=== PATIENT | male | born 1965 | race Caucasian/White ===

== ENCOUNTER 2016-12-31 04:58 | Emergency (ER) | payer OTHER ==
--- NOTE | 2016-12-31 06:11 | ED ORDER SUMMARY ---
..... Patient: AURELIO ANGEL OrderSheet [facility] VisitID: [id number] [place] [address] 51y, M Registration Date/Time: 12/31/2016 ORDER SHEET Weight: 88.4 kg (stated) Allergies: No Known Drug Allergy GENERAL ORDERS: MEDICATION ORDERS: Albuterol Neb w Atrovent 5 mg (NOW) (05:11 12/31/2016 DDavis R.N. per protocol) (Ack 5:12 DDavis R.N.) (5:43 ASingh) Prednisone PO 60 mg (NOW) (05:20 12/31/2016 Leona Arellano) (5:23 DDavis R.N.) Albuterol Neb Tx 5 mg (once now) (05:29 12/31/2016 Leona Arellano) (Ack 5:35 DDavis R.N.) (5:43 ASingh) IV FLUIDS: ORDER SHEET NOTES: [Electronically signed by Ashish Contreras R.N. (06:12/31/2016)] [Electronically signed by Nick Stevenson Dr. (03:24 01/05/2017)] [Electronically locked/signed by Ashish Contreras R.N. (06:12/31/2016)]
--- NOTE | 2016-12-31 06:11 | ED NURSING NOTES ---
Clinical Report - Nurses [facility] [address] [place] [address] 12/31/2016 4:59 Patient: AURELIO ANGEL TRIAGE Triage time 05:02. Acuity: LEVEL 4. Chief Complaint: SHORTNESS OF BREATH. No acute distress. --05:05 Ashish Contreras R.N. 05:02 12/31/16. BP: 122/68. HR: 72. RR: 24. O2 saturation: 96% on room air. Temp: 97.7 F (oral). Pain level now: 03/05. --05:05 Ashish Contreras R.N. Weight: 88.4 kg stated. Height/Length: 108 inches Per Patient. BMI: 11.7. --05:01 Ashish Contreras R.N. Medications None. --05:03 Ashish Contreras R.N. Allergies No Known Drug Allergy. --05:03 Ashish Contreras R.N. History Arrived by private vehicle. Historian: patient. Accompanied by family. Onset. (1 week ago). He has had fever, chills and chest pain. He has had a cough productive of clear sputum. SOCIAL HX: Heavy tobacco smoker- less than 1 pack per day. History of occasional drug use: marijuana. No alcohol use. --05:05 Ashish Contreras R.N. PROBLEMS: Asthma. Bronchitis. --05:03 Ashish Contreras R.N. ADDITIONAL SURGERIES: no known surgeries. Interventions ID band on patient. To treatment room. --05:05 Ashish Contreras R.N. PHYSICAL ASSESSMENT Ambulatory to room. GENERAL / NEURO / PSYCH: Alert. Oriented X 4. Appears anxious. HEENT: Mucous membranes are pink. RESPIRATORY: Mild respiratory distress. Respirations not labored. The patient can speak in full sentences. Expiratory and inspiratory bilateral wheezes diffusely. CVS: Capillary refill less than 2 seconds. GI / : Abdomen soft and nontender. SKIN: Skin is warm and dry. --05:07 Ben, Ashish, R.N. CVS: ( no abnormal heart sound noted on auscultation). --05:14 Ashish Contreras R.N. GENERAL / NEURO / PSYCH: Alert. Oriented X 4. RESPIRATORY: No respiratory distress. No respiratory distress. CVS: Capillary refill less than 2 seconds. --06:24 Ashish Contreras R.N. GENERAL / NEURO / PSYCH: Does not appear in pain or distress or anxious. --06:24 Ashish Contreras R.N. NURSING PROGRESS NOTES Head of bed elevated. Reassurance given. Two patient identifiers checked. Call light placed in reach. Side rails up x 1. Bed placed in lowest position. Brakes of bed on. Patient ready for evaluation- chart flagged. Patient waiting for evaluation. --05:07 Ashish Contreras R.N. ( I called RT and requested breathing treatment.). --05:12 Ashish Contreras R.N. 05:23 12/31/2016 Prednisone PO Tablets 60 mg given. Allergies verified and confirmed 5 rights. --05:23 Ashish Contreras R.N. ( RT currently with patient). --05:23 Ashish Contreras R.N. ( RT called for second breathing treatment). --05:35 Ashish Contreras R.N. DISPOSITION / DISCHARGE Departure time: 06:23. Condition at departure: improved and stable. No learning barriers present. Discharge instructions provided and reviewed with the patient and family. Reviewed warnings. Reviewed medication(s) side effects, precautions, dosing and course information. Prescription(s) given to the patient. Treatments reviewed. Reviewed referrals for followup. Patient and communications specialist verbalized understanding. Written instructions provided in Slovenian. The patient was discharged home and accompanied by communications specialist. He left the Emergency Department ambulatory and via private vehicle. Cath Lab Radiology Technician driving. ( pt states that his breathing is "better."). --06:23 Ashish Contreras R.N. 06:22 12/31/16. BP: 112/67. HR: 74. RR: 20. O2 saturation: 95% on room air. --06:23 Ashish Contreras R.N. Locked/Released at 12/31/2016 6:24 by Ashish Contreras R.N.
--- NOTE | 2016-12-31 06:11 | ED CLINICAL REPORT ---
Clinical Report - Physicians/Mid Levels [facility] [address] [place] [place] [address] 12/31/2016 4:59 Patient: AURELIO ANGEL Time Seen: 0507. Arrived- By private vehicle. Historian- patient. HISTORY OF PRESENT ILLNESS Chief Complaint: WHEEZING and HISTORY OF ASTHMA. This started today and is still present. It was abrupt in onset and has been constant but is not gone now. The dyspnea is described as moderate. He has had dyspnea at rest. The patient has had a cough. No orthopnea or chest pain or discomfort. Asthma triggers: unknown. Takes asthma medications, but ran out. has not needed it for the past few years. Similar symptoms previously: Recent medical care: Not recently seen/assessed. REVIEW OF SYSTEMS No skin rash. All systems otherwise negative, except as recorded above. PAST HISTORY See nurses notes. Additional Surgeries: no known surgeries. Medications: None. Allergies: No Known Drug Allergy. SOCIAL HISTORY Never smoker. No alcohol use or drug use. No recent travel. Is a local resident. 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 ADDITIONAL NOTES The nursing notes have been reviewed. PHYSICAL EXAM Vital Signs: 12/31/2016 05:02 BP: 122/68. HR: 72. RR: 24. O2 saturation: 96%. Temp: 97.7 F. Pain level now: 6/10. Blood pressure normal. Oxygen saturation normal. Appearance: Alert. No acute distress. Eyes: Pupils equal, round and reactive to light. Eyes normal inspection. ENT: Ears normal. Nose normal. Pharynx normal. Uvula midline. Neck: Normal inspection. Neck supple. CVS: Normal heart rate and rhythm. Heart sounds normal. Pulses normal. Respiratory: Mild respiratory distress with accessory muscle use. Expiratory moderate bilateral wheezes diffusely. No stridor, rales or rhonchi. Abdomen: Soft and nontender. No organomegaly. Back: Normal inspection. Skin: Skin warm and dry. Normal skin color. No rash. Normal skin turgor. Extremities: Extremities exhibit normal ROM. No lower extremity edema. PROGRESS AND PROCEDURES Course of Care: the patient is a 51-year-old male with past medical history significant for asthma presenting for evaluation of wheezing. Patient in a mild amount of respiratory distress. Respiratory therapy has been called. Respiratory therapy at bedside immediately. Breathing treatment started. Steroids also provided. Patient does not have a fever at this time. Do not feel symptoms are due to pneumonia. Patient is agreeable to treatment plan. patient will be monitored here in the emergency department. patient was provided with breathing treatment and reevaluated. Patient responded well to the breathing treatment. Patient still wheezing however. Another breathing treatment will be ordered. The patient is agreeable to the treatment plan. Because the patient is responding appropriately to the breathing treatments, do not feel patient requires further workup here in the emergency department. We'll monitor closely at this time and in to sleep patient will be discharged from the emergency Department follow-up with his primary care Dr. Breathing treatments while here in the emergency department the been successful in reversing the patient'sasthma symptoms. Patient is resting in bed and in no acute distress. Patient continues to be nontoxic. Lungs are clear to auscultation bilaterally. Because the patient's significant improvement while here in the emergency department, did not feel chest x-ray or further emergency department workup is warranted at this time. Patient is a good outpatient candidate. Refills of patient's asthma medication provided as well assteroid burst. Patient is a good outpatient candidate. Patient is a stable and reliable. I discussed with patient his workup here in the emergency department including home care, follow-up, diagnosis, and return precautions. All questions have been answered. The patient expressed understanding of these instructions and was agreeable to them. CLINICAL IMPRESSION 12/31/2016 05:02 BP: 122/68. HR: 72. RR: 24. O2 saturation: 96%. Temp: 97.7 F. Pain level now: 6/10. Blood pressure normal. Oxygen saturation normal. Mild persistent asthma with an acute exacerbation. No status asthmaticus. INSTRUCTIONS Off work today. Warnings: GENERAL WARNINGS: Return or contact your physician immediately if your condition worsens or changes unexpectedly, if not improving as expected, or if other problems arise. Specifically return if pain, vomiting, bleeding, breathing difficulty or fever. Your Current Medications: CONTINUE TAKING THE FOLLOWING MEDICATIONS: None*. Prescription Medications: Albuterol HFA oral inhaler: inhale 1-2 puffs every 4 hours as needed for wheezing, difficulty breathing or shortness of breath. Dispense one (1) unit. No refill. Prednisone every day for 5 days. Dispense sufficient quantity. No refills. (60 mg PO) Follow-up: Return to the emergency department as needed. Follow up with your doctor in three days. Reason for referral: recheck today's concerns. Summary of care provided to patient via paper. Screening today revealed the patient's blood pressure to be in the hypertensive range. The patient should follow up with a primary care provider for blood pressure management. Understanding of the discharge instructions verbalized by patient. (Electronically signed by Nick Stevenson Dr. 01/05/2017 3:24)
--- NOTE | 2016-12-31 06:11 | ED ORDER SUMMARY ---
..... Patient: AURELIO ANGEL OrderSheet [facility] VisitID: [id number] [place] [address] 51y, M Registration Date/Time: 12/31/2016 ORDER SHEET Weight: 88.4 kg (stated) Allergies: No Known Drug Allergy GENERAL ORDERS: MEDICATION ORDERS: Albuterol Neb w Atrovent 5 mg (NOW) (05:11 12/31/2016 DDavis R.N. per protocol) (Ack 5:12 DDavis R.N.) (5:43 ASingh) Prednisone PO 60 mg (NOW) (05:20 12/31/2016 Leona Arellano) (5:23 DDavis R.N.) Albuterol Neb Tx 5 mg (once now) (05:29 12/31/2016 Leona Arellano) (Ack 5:35 DDavis R.N.) (5:43 ASingh) IV FLUIDS: ORDER SHEET NOTES: [Electronically signed by Ashish Contreras R.N. (06:12/31/2016)] [Electronically signed by Nick Stevenson Dr. (03:24 01/05/2017)] [Electronically locked/signed by Ashish Contreras R.N. (06:12/31/2016)]
--- NOTE | 2016-12-31 06:11 | ED NURSING NOTES ---
Clinical Report - Nurses [facility] [address] [place] [address] 12/31/2016 4:59 Patient: AURELIO ANGEL TRIAGE Triage time 05:02. Acuity: LEVEL 4. Chief Complaint: SHORTNESS OF BREATH. No acute distress. --05:05 Ashish Contreras R.N. 05:02 12/31/16. BP: 122/68. HR: 72. RR: 24. O2 saturation: 96% on room air. Temp: 97.7 F (oral). Pain level now: 03/05. --05:05 Ashish Contreras R.N. Weight: 88.4 kg stated. Height/Length: 108 inches Per Patient. BMI: 11.7. --05:01 Ashish Contreras R.N. Medications None. --05:03 Ashish Contreras R.N. Allergies No Known Drug Allergy. --05:03 Ashish Contreras R.N. History Arrived by private vehicle. Historian: patient. Accompanied by family. Onset. (1 week ago). He has had fever, chills and chest pain. He has had a cough productive of clear sputum. SOCIAL HX: Heavy tobacco smoker- less than 1 pack per day. History of occasional drug use: marijuana. No alcohol use. --05:05 Ashish Contreras R.N. PROBLEMS: Asthma. Bronchitis. --05:03 Ashish Contreras R.N. ADDITIONAL SURGERIES: no known surgeries. Interventions ID band on patient. To treatment room. --05:05 Ashish Contreras R.N. PHYSICAL ASSESSMENT Ambulatory to room. GENERAL / NEURO / PSYCH: Alert. Oriented X 4. Appears anxious. HEENT: Mucous membranes are pink. RESPIRATORY: Mild respiratory distress. Respirations not labored. The patient can speak in full sentences. Expiratory and inspiratory bilateral wheezes diffusely. CVS: Capillary refill less than 2 seconds. GI / : Abdomen soft and nontender. SKIN: Skin is warm and dry. --05:07 Ben, Ashish, R.N. CVS: ( no abnormal heart sound noted on auscultation). --05:14 Ashish Contreras R.N. GENERAL / NEURO / PSYCH: Alert. Oriented X 4. RESPIRATORY: No respiratory distress. No respiratory distress. CVS: Capillary refill less than 2 seconds. --06:24 Ashish Contreras R.N. GENERAL / NEURO / PSYCH: Does not appear in pain or distress or anxious. --06:24 Ashish Contreras R.N. NURSING PROGRESS NOTES Head of bed elevated. Reassurance given. Two patient identifiers checked. Call light placed in reach. Side rails up x 1. Bed placed in lowest position. Brakes of bed on. Patient ready for evaluation- chart flagged. Patient waiting for evaluation. --05:07 Ashish Contreras R.N. ( I called RT and requested breathing treatment.). --05:12 Ashish Contreras R.N. 05:23 12/31/2016 Prednisone PO Tablets 60 mg given. Allergies verified and confirmed 5 rights. --05:23 Ashish Contreras R.N. ( RT currently with patient). --05:23 Ashish Contreras R.N. ( RT called for second breathing treatment). --05:35 Ashish Cnotreras R.N. DISPOSITION / DISCHARGE Departure time: 06:23. Condition at departure: improved and stable. No learning barriers present. Discharge instructions provided and reviewed with the patient and family. Reviewed warnings. Reviewed medication(s) side effects, precautions, dosing and course information. Prescription(s) given to the patient. Treatments reviewed. Reviewed referrals for followup. Patient and green end man verbalized understanding. Written instructions provided in Romansh. The patient was discharged home and accompanied by green end man. He left the Emergency Department ambulatory and via private vehicle. Screw Machine Tender driving. ( pt states that his breathing is "better."). --06:23 Ashish Contreras R.N. 06:22 12/31/16. BP: 112/67. HR: 74. RR: 20. O2 saturation: 95% on room air. --06:23 Ashish Contreras R.N. Locked/Released at 12/31/2016 6:24 by Ashish Contreras R.N.
--- NOTE | 2017-01-05 03:24 | ED MAR SUMMARY ---
..... Medication Administration Record [facility] [address] [place] [address] Patient: AURELIO ANGEL Visit ID: [id number] 51y, M Weight: 88.4 kg Height/Length: 108 in BMI: 11.7 ALLERGIES: No Known Drug Allergy Given 05:23 12/31/2016 Ashish Contreras R.N. Medication Administered: PREDNISONE [PO], Dose: 60 mg Tablets PO. Medication Ordered: Prednisone PO 60 mg (NOW). Given 05:28 12/31/2016 Mj Yin, Medication Administered: ALBUTEROL NEB W ATROVENT, Dose: 2.5 mg Nebulizer Neb TX. Medication Ordered: Albuterol Neb w Atrovent 5 mg (NOW). Given 05:43 12/31/2016 Mj Yin, Medication Administered: ALBUTEROL [NEB TX], Dose: 5 mg Nebulizer Neb TX. Medication Ordered: Albuterol Neb Tx 5 mg (once now).
--- NOTE | 2017-01-05 03:24 | ED MED RECONCILIATION SUMMARY ---
Patient: AURELIO ANGEL Medication Reconciliation Report [facility] VisitID: [id number] [place] [address] 51y, M Registration Date/Time: 12/31/2016 Weight: 88.4 kg Height/Length: 108 in. BMI: 11.7 ALLERGIES: No Known Drug Allergy The patient's Home Medications are listed below: NONE. The source(s) of the original Home Medication information: Not obtained. The following Medications were given to the patient in the Emergency Department: Prednisone [PO] PO 60 mg, administered: 12/31/2016 5:23:00 AM ALBUTEROL NEB W ATROVENT Neb TX 2.5 mg, administered: 12/31/2016 5:28:00 AM Albuterol [Neb Tx] Neb TX 5 mg, administered: 12/31/2016 5:43:00 AM The following Medications were prescribed to the patient: Albuterol HFA oral inhaler: inhale 1-2 puffs every 4 hours as needed for wheezing, difficulty breathing or shortness of breath. Dispense one (1) unit. No refill. -- Nick Stevenson Dr. Prednisone every day for 5 days. Dispense sufficient quantity. No refills.(60 mg PO) -- Nick Stevenson Dr.
--- NOTE | 2017-01-05 03:24 | ED MED RECONCILIATION SUMMARY ---
Patient: AURELIO ANGEL Medication Reconciliation Report [facility] VisitID: [id number] [place] [address] 51y, M Registration Date/Time: 12/31/2016 Weight: 88.4 kg Height/Length: 108 in. BMI: 11.7 ALLERGIES: No Known Drug Allergy The patient's Home Medications are listed below: NONE. The source(s) of the original Home Medication information: Not obtained. The following Medications were given to the patient in the Emergency Department: Prednisone [PO] PO 60 mg, administered: 12/31/2016 5:23:00 AM ALBUTEROL NEB W ATROVENT Neb TX 2.5 mg, administered: 12/31/2016 5:28:00 AM Albuterol [Neb Tx] Neb TX 5 mg, administered: 12/31/2016 5:43:00 AM The following Medications were prescribed to the patient: Albuterol HFA oral inhaler: inhale 1-2 puffs every 4 hours as needed for wheezing, difficulty breathing or shortness of breath. Dispense one (1) unit. No refill. -- Nick Stevenson Dr. Prednisone every day for 5 days. Dispense sufficient quantity. No refills.(60 mg PO) -- Nick Stevenson Dr.
--- NOTE | 2017-01-05 03:24 | ED MAR SUMMARY ---
..... Medication Administration Record [facility] [address] [place] [address] Patient: AURELIO ANGEL Visit ID: [id number] 51y, M Weight: 88.4 kg Height/Length: 108 in BMI: 11.7 ALLERGIES: No Known Drug Allergy Given 05:23 12/31/2016 Ashish Contreras R.N. Medication Administered: PREDNISONE [PO], Dose: 60 mg Tablets PO. Medication Ordered: Prednisone PO 60 mg (NOW). Given 05:28 12/31/2016 Mj Yin, Medication Administered: ALBUTEROL NEB W ATROVENT, Dose: 2.5 mg Nebulizer Neb TX. Medication Ordered: Albuterol Neb w Atrovent 5 mg (NOW). Given 05:43 12/31/2016 Mj Yin, Medication Administered: ALBUTEROL [NEB TX], Dose: 5 mg Nebulizer Neb TX. Medication Ordered: Albuterol Neb Tx 5 mg (once now).
--- NOTE | 2017-01-05 03:24 | ED DISCHARGE INSTRUCTIONS ---
Patient: AURELIO ANGEL [facility] VisitID: [id number] [place] [address] 51y, M Registration Date/Time: 12/31/2016 12/31/2016 05:02 BP: 122/68. HR: 72. RR: 24. O2 saturation: 96%. Temp: 97.7 F. Pain level now: 6/10. Blood pressure normal. Oxygen saturation normal. Mild persistent asthma with an acute exacerbation. No status asthmaticus. INSTRUCTIONS Off work today. Warnings: GENERAL WARNINGS: Return or contact your physician immediately if your condition worsens or changes unexpectedly, if not improving as expected, or if other problems arise. Specifically return if pain, vomiting, bleeding, breathing difficulty or fever. Your Current Medications: CONTINUE TAKING THE FOLLOWING MEDICATIONS: None*. Prescription Medications: Albuterol HFA oral inhaler: inhale 1-2 puffs every 4 hours as needed for wheezing, difficulty breathing or shortness of breath. Dispense one (1) unit. No refill. Prednisone every day for 5 days. Dispense sufficient quantity. No refills. (60 mg PO) Follow-up: Return to the emergency department as needed. Follow up with your doctor in three days. Reason for referral: recheck today's concerns. Summary of care provided to patient via paper. Screening today revealed the patient's blood pressure to be in the hypertensive range. The patient should follow up with a primary care provider for blood pressure management. Understanding of the discharge instructions verbalized by patient. ADDITIONAL INFORMATION Asthma [Adult] Asthma is a disease where the small air passages within the lung go into spasm and restrict the flow of air. Inflammation and swelling of the airways cause further restriction. During an acute asthma attack, these factors cause difficulty breathing, wheezing, cough and chest tightness. An asthma attack can be triggered by many things. Common triggers include the common cold, bronchitis, pneumonia, irritants such as smoke or pullutants in the air, emotional upset and heavy exercise. Inmany adults with asthma, allergies todust, mold, pollen and animal dander can cause an asthma attack. Skipping doses of daily asthma medicine can also bring on an asthma attack. Asthma can be controlled with proper medicines and decreased exposure to known allergens. Home Care: Take prescribed medicine exactly at the times advised. If you have a hand-held inhaler or aerosol breathing medicine, do not use it more than once every four hours, unless told to do so. (If you need this medicine more than every four hours, you may need to return to the Emergency Room.) If prescribed an antibiotic or prednisone, take all of the medicine even if you are feeling better after a few days. Do not smoke. Avoid being exposed to the smoke of others. Some persons with asthma have worsening of their symptoms when they take aspirin and non-steroidal medicines like ibuprofen (Motrin, Advil) and naproxen (Aleve, Naprosyn). Talk to your doctor if you think this may apply to you. Acetaminophen (Tylenol)should be safe to use. Follow Up with your doctor, or as advised by our staff. Always bring all of your current medicines with you for your doctor to see. If you do not already have one, talk to your doctor about developing a personalized "Asthma Action Plan." [NOTE: A pneumococcal vaccine and yearly flu shot (every fall) are recommended. Ask your doctor about this.] Get Prompt Medical Attention if any of the following occur: Increased wheezing or shortness of breath Need to use your inhalers more often than usual without relief Fever of 100.4F (38C) or higher, or as directed by your healthcare provider Coughing up lots of dark-colored or bloody sputum (mucus) Chest pain with each breath You do not start to improve within 24 hours Call 911 If Any Of The Following Occur : Trouble walking or talking because of shortness of breath If you use a peak flow meter andyou are still in the red zone (less than 50 percent) 15 minutes after using inhaler medication Lips or fingernails turning gallardo or blue Albuterol Sulfate Pressurized inhalation, suspension What is this medicine? ALBUTEROL (al BYOO ter ole) is a bronchodilator. It helps open up the airways in your lungs to make it easier to breathe. This medicine is used to treat and to prevent bronchospasm. How should I use this medicine? This medicine is for inhalation through the mouth. Follow the directions on your prescription label. Take your medicine at regular intervals. Do not use more often than directed. Make sure that you are using your inhaler correctly. Ask you doctor or health care provider if you have any questions. Talk to your faith healer regarding the use of this medicine in children. Special care may be needed. What side effects may I notice from receiving this medicine? Side effects that you should report to your doctor or health rn homecare as soon as possible: allergic reactions like skin rash, itching or hives, swelling of the face, lips, or tongue breathing problems chest pain feeling faint or lightheaded, falls high blood pressure irregular heartbeat fever muscle cramps or weakness pain, tingling, numbness in the hands or feet vomiting Side effects that usually do not require medical attention (report to your doctor or health rn homecare if they continue or are bothersome): cough difficulty sleeping headache nervousness or trembling stomach upset stuffy or runny nose throat irritation unusual taste What may interact with this medicine? anti-infectives like chloroquine and pentamidine caffeine cisapride diuretics medicines for colds medicines for depression or for emotional or psychotic conditions medicines for weight loss including some herbal products methadone some antibiotics like clarithromycin, erythromycin, levofloxacin, and linezolid some heart medicines steroid hormones like dexamethasone, cortisone, hydrocortisone theophylline thyroid hormones What if I miss a dose? If you miss a dose, use it as soon as you can. If it is almost time for your next dose, use only that dose. Do not use double or extra doses. Where should I keep my medicine? Keep out of the reach of children. Store at room temperature between 15 and 30 degrees C (59 and 86 degrees F). The contents are under pressure and may burst when exposed to heat or flame. Do not freeze. This medicine does not work as well if it is too cold. Throw away any unused medicine after the expiration date. Inhalers need to be thrown away after the labeled number of puffs have been used or by the expiration date; whichever comes first. Ventolin HFA should be thrown away 12 months after removing from foil pouch. Check the instructions that come with your medicine. What should I tell my health care provider before I take this medicine? They need to know if you have any of the following conditions: diabetes heart disease or irregular heartbeat high blood pressure pheochromocytoma seizures thyroid disease an unusual or allergic reaction to albuterol, levalbuterol, sulfites, other medicines, foods, dyes, or preservatives or trying to get breast-feeding What should I watch for while using this medicine? Tell your doctor or health rn homecare if your symptoms do not improve. Do not use extra albuterol. If your asthma or bronchitis gets worse while you are using this medicine, call your doctor right away. If your mouth gets dry try chewing sugarless gum or sucking hard candy. Drink water as directed. Prednisone Oral tablet What is this medicine? PREDNISONE (PRED ni sone) is a corticosteroid. It is commonly used to treat inflammation of the skin, joints, lungs, and other organs. Common conditions treated include asthma, allergies, and arthritis. It is also used for other conditions, such as blood disorders and diseases of the adrenal glands. How should I use this medicine? Take this medicine by mouth with a glass of water. Follow the directions on the prescription label. Take this medicine with food. If you are taking this medicine once a day, take it in the morning. Do not take more medicine than you are told to take. Do not suddenly stop taking your medicine because you may develop a severe reaction. Your doctor will tell you how much medicine to take. If your doctor wants you to stop the medicine, the dose may be slowly lowered over time to avoid any side effects. Talk to your faith healer regarding the use of this medicine in children. Special care may be needed. What side effects may I notice from receiving this medicine? Side effects that you should report to your doctor or health rn homecare as soon as possible: allergic reactions like skin rash, itching or hives, swelling of the face, lips, or tongue changes in emotions or moods changes in vision depressed mood eye pain fever or chills, cough, sore throat, pain or difficulty passing urine increased thirst swelling of ankles, feet Side effects that usually do not require medical attention (report to your doctor or health rn homecare if they continue or are bothersome): confusion, excitement, restlessness headache nausea, vomiting skin problems, acne, thin and shiny skin trouble sleeping weight gain What may interact with this medicine? Do not take this medicine with any of the following medications: metyrapone mifepristone This medicine may also interact with the following medications: aminoglutethimide amphotericin B aspirin and aspirin-like medicines barbiturates certain medicines for diabetes, like glipizide or glyburide cholestyramine cholinesterase inhibitors cyclosporine digoxin diuretics ephedrine female hormones, like estrogens and control pills isoniazid ketoconazole NSAIDS, medicines for pain and inflammation, like ibuprofen or naproxen phenytoin rifampin toxoids vaccines warfarin What if I miss a dose? If you miss a dose, take it as soon as you can. If it is almost time for your next dose, talk to your doctor or health rn homecare. You may need to miss a dose or take an extra dose. Do not take double or extra doses without advice. Where should I keep my medicine? Keep out of the reach of children. Store at room temperature between 15 and 30 degrees C (59 and 86 degrees F). Protect from light. Keep container tightly closed. Throw away any unused medicine after the expiration date. What should I tell my health care provider before I take this medicine? They need to know if you have any of these conditions: Guillermina's syndrome diabetes glaucoma heart disease high blood pressure infection (especially a virus infection such as chickenpox, cold sores, or herpes) kidney disease liver disease mental illness myasthenia gravis osteoporosis seizures stomach or intestine problems thyroid disease an unusual or allergic reaction to lactose, prednisone, other medicines, foods, dyes, or preservatives or trying to get breast-feeding What should I watch for while using this medicine? Visit your doctor or health rn homecare for regular checks on your progress. If you are taking this medicine over a prolonged period, carry an identification card with your name and address, the type and dose of your medicine, and your doctor's name and address. This medicine may increase your risk of getting an infection. Tell your doctor or health rn homecare if you are around anyone with measles or chickenpox, or if you develop sores or blisters that do not heal properly. If you are going to have surgery, tell your doctor or health rn homecare that you have taken this medicine within the last twelve months. Ask your doctor or health rn homecare about your diet. You may need to lower the amount of salt you eat. This medicine may affect blood sugar levels. If you have diabetes, check with your doctor or health rn homecare before you change your diet or the dose of your diabetic medicine. You have been given the following additional information: Asthma, Acute (Adult) Albuterol Sulfate Pressurized inhalation, suspension Prednisone Oral tablet Off work today. (Electronically signed by Nick Stevenson Dr. 01/05/2017 3:24)
--- NOTE | 2017-01-05 03:24 | ED DISCHARGE INSTRUCTIONS ---
Patient: AURELIO ANGEL General Instructions [facility] VisitID: [id number] [place] [address] 51y, M Registration Date/Time: 12/31/2016 12/31/2016 05:02 BP: 122/68. HR: 72. RR: 24. O2 saturation: 96%. Temp: 97.7 F. Pain level now: 6/10. Blood pressure normal. Oxygen saturation normal. Mild persistent asthma with an acute exacerbation. No status asthmaticus. INSTRUCTIONS Off work today. Warnings: GENERAL WARNINGS: Return or contact your physician immediately if your condition worsens or changes unexpectedly, if not improving as expected, or if other problems arise. Specifically return if pain, vomiting, bleeding, breathing difficulty or fever. Your Current Medications: CONTINUE TAKING THE FOLLOWING MEDICATIONS: None*. Prescription Medications: Albuterol HFA oral inhaler: inhale 1-2 puffs every 4 hours as needed for wheezing, difficulty breathing or shortness of breath. Dispense one (1) unit. No refill. Prednisone every day for 5 days. Dispense sufficient quantity. No refills. (60 mg PO) Follow-up: Return to the emergency department as needed. Follow up with your doctor in three days. Reason for referral: recheck today's concerns. Summary of care provided to patient via paper. Screening today revealed the patient's blood pressure to be in the hypertensive range. The patient should follow up with a primary care provider for blood pressure management. Understanding of the discharge instructions verbalized by patient. ADDITIONAL INFORMATION Asthma [Adult] Asthma is a disease where the small air passages within the lung go into spasm and restrict the flow of air. Inflammation and swelling of the airways cause further restriction. During an acute asthma attack, these factors cause difficulty breathing, wheezing, cough and chest tightness. An asthma attack can be triggered by many things. Common triggers include the common cold, bronchitis, pneumonia, irritants such as smoke or pullutants in the air, emotional upset and heavy exercise. Inmany adults with asthma, allergies todust, mold, pollen and animal dander can cause an asthma attack. Skipping doses of daily asthma medicine can also bring on an asthma attack. Asthma can be controlled with proper medicines and decreased exposure to known allergens. Home Care: Take prescribed medicine exactly at the times advised. If you have a hand-held inhaler or aerosol breathing medicine, do not use it more than once every four hours, unless told to do so. (If you need this medicine more than every four hours, you may need to return to the Emergency Room.) If prescribed an antibiotic or prednisone, take all of the medicine even if you are feeling better after a few days. Do not smoke. Avoid being exposed to the smoke of others. Some persons with asthma have worsening of their symptoms when they take aspirin and non-steroidal medicines like ibuprofen (Motrin, Advil) and naproxen (Aleve, Naprosyn). Talk to your doctor if you think this may apply to you. Acetaminophen (Tylenol)should be safe to use. Follow Up with your doctor, or as advised by our staff. Always bring all of your current medicines with you for your doctor to see. If you do not already have one, talk to your doctor about developing a personalized "Asthma Action Plan." [NOTE: A pneumococcal vaccine and yearly flu shot (every fall) are recommended. Ask your doctor about this.] Get Prompt Medical Attention if any of the following occur: Increased wheezing or shortness of breath Need to use your inhalers more often than usual without relief Fever of 100.4F (38C) or higher, or as directed by your healthcare provider Coughing up lots of dark-colored or bloody sputum (mucus) Chest pain with each breath You do not start to improve within 24 hours Call 911 If Any Of The Following Occur : Trouble walking or talking because of shortness of breath If you use a peak flow meter andyou are still in the red zone (less than 50 percent) 15 minutes after using inhaler medication Lips or fingernails turning gallardo or blue Albuterol Sulfate Pressurized inhalation, suspension What is this medicine? ALBUTEROL (al BYOO ter ole) is a bronchodilator. It helps open up the airways in your lungs to make it easier to breathe. This medicine is used to treat and to prevent bronchospasm. How should I use this medicine? This medicine is for inhalation through the mouth. Follow the directions on your prescription label. Take your medicine at regular intervals. Do not use more often than directed. Make sure that you are using your inhaler correctly. Ask you doctor or health care provider if you have any questions. Talk to your card mounter regarding the use of this medicine in children. Special care may be needed. What side effects may I notice from receiving this medicine? Side effects that you should report to your doctor or health care services manager as soon as possible: allergic reactions like skin rash, itching or hives, swelling of the face, lips, or tongue breathing problems chest pain feeling faint or lightheaded, falls high blood pressure irregular heartbeat fever muscle cramps or weakness pain, tingling, numbness in the hands or feet vomiting Side effects that usually do not require medical attention (report to your doctor or health care services manager if they continue or are bothersome): cough difficulty sleeping headache nervousness or trembling stomach upset stuffy or runny nose throat irritation unusual taste What may interact with this medicine? anti-infectives like chloroquine and pentamidine caffeine cisapride diuretics medicines for colds medicines for depression or for emotional or psychotic conditions medicines for weight loss including some herbal products methadone some antibiotics like clarithromycin, erythromycin, levofloxacin, and linezolid some heart medicines steroid hormones like dexamethasone, cortisone, hydrocortisone theophylline thyroid hormones What if I miss a dose? If you miss a dose, use it as soon as you can. If it is almost time for your next dose, use only that dose. Do not use double or extra doses. Where should I keep my medicine? Keep out of the reach of children. Store at room temperature between 15 and 30 degrees C (59 and 86 degrees F). The contents are under pressure and may burst when exposed to heat or flame. Do not freeze. This medicine does not work as well if it is too cold. Throw away any unused medicine after the expiration date. Inhalers need to be thrown away after the labeled number of puffs have been used or by the expiration date; whichever comes first. Ventolin HFA should be thrown away 12 months after removing from foil pouch. Check the instructions that come with your medicine. What should I tell my health care provider before I take this medicine? They need to know if you have any of the following conditions: diabetes heart disease or irregular heartbeat high blood pressure pheochromocytoma seizures thyroid disease an unusual or allergic reaction to albuterol, levalbuterol, sulfites, other medicines, foods, dyes, or preservatives or trying to get breast-feeding What should I watch for while using this medicine? Tell your doctor or health care services manager if your symptoms do not improve. Do not use extra albuterol. If your asthma or bronchitis gets worse while you are using this medicine, call your doctor right away. If your mouth gets dry try chewing sugarless gum or sucking hard candy. Drink water as directed. Prednisone Oral tablet What is this medicine? PREDNISONE (PRED ni sone) is a corticosteroid. It is commonly used to treat inflammation of the skin, joints, lungs, and other organs. Common conditions treated include asthma, allergies, and arthritis. It is also used for other conditions, such as blood disorders and diseases of the adrenal glands. How should I use this medicine? Take this medicine by mouth with a glass of water. Follow the directions on the prescription label. Take this medicine with food. If you are taking this medicine once a day, take it in the morning. Do not take more medicine than you are told to take. Do not suddenly stop taking your medicine because you may develop a severe reaction. Your doctor will tell you how much medicine to take. If your doctor wants you to stop the medicine, the dose may be slowly lowered over time to avoid any side effects. Talk to your card mounter regarding the use of this medicine in children. Special care may be needed. What side effects may I notice from receiving this medicine? Side effects that you should report to your doctor or health care services manager as soon as possible: allergic reactions like skin rash, itching or hives, swelling of the face, lips, or tongue changes in emotions or moods changes in vision depressed mood eye pain fever or chills, cough, sore throat, pain or difficulty passing urine increased thirst swelling of ankles, feet Side effects that usually do not require medical attention (report to your doctor or health care services manager if they continue or are bothersome): confusion, excitement, restlessness headache nausea, vomiting skin problems, acne, thin and shiny skin trouble sleeping weight gain What may interact with this medicine? Do not take this medicine with any of the following medications: metyrapone mifepristone This medicine may also interact with the following medications: aminoglutethimide amphotericin B aspirin and aspirin-like medicines barbiturates certain medicines for diabetes, like glipizide or glyburide cholestyramine cholinesterase inhibitors cyclosporine digoxin diuretics ephedrine female hormones, like estrogens and control pills isoniazid ketoconazole NSAIDS, medicines for pain and inflammation, like ibuprofen or naproxen phenytoin rifampin toxoids vaccines warfarin What if I miss a dose? If you miss a dose, take it as soon as you can. If it is almost time for your next dose, talk to your doctor or health care services manager. You may need to miss a dose or take an extra dose. Do not take double or extra doses without advice. Where should I keep my medicine? Keep out of the reach of children. Store at room temperature between 15 and 30 degrees C (59 and 86 degrees F). Protect from light. Keep container tightly closed. Throw away any unused medicine after the expiration date. What should I tell my health care provider before I take this medicine? They need to know if you have any of these conditions: Guillermina's syndrome diabetes glaucoma heart disease high blood pressure infection (especially a virus infection such as chickenpox, cold sores, or herpes) kidney disease liver disease mental illness myasthenia gravis osteoporosis seizures stomach or intestine problems thyroid disease an unusual or allergic reaction to lactose, prednisone, other medicines, foods, dyes, or preservatives or trying to get breast-feeding What should I watch for while using this medicine? Visit your doctor or health care services manager for regular checks on your progress. If you are taking this medicine over a prolonged period, carry an identification card with your name and address, the type and dose of your medicine, and your doctor's name and address. This medicine may increase your risk of getting an infection. Tell your doctor or health care services manager if you are around anyone with measles or chickenpox, or if you develop sores or blisters that do not heal properly. If you are going to have surgery, tell your doctor or health care services manager that you have taken this medicine within the last twelve months. Ask your doctor or health care services manager about your diet. You may need to lower the amount of salt you eat. This medicine may affect blood sugar levels. If you have diabetes, check with your doctor or health care services manager before you change your diet or the dose of your diabetic medicine. You have been given the following additional information: Asthma, Acute (Adult) Albuterol Sulfate Pressurized inhalation, suspension Prednisone Oral tablet Off work today. (Electronically signed by Nick Stevenson Dr. 01/05/2017 3:24)
== END 2016-12-31 06:14 | disposition home or self-care (01) ==
LOC: ED SRH 04:58
DX: J45.31 Mild persistent asthma with (acute) exacerbation (principal)